=== PATIENT | male | born 1965 | race Caucasian/White ===

== ENCOUNTER 2020-06-19 23:07 | Inpatient (IN) ==
[2020-06-20] MEDS ORDERED: Heparin 5000 UNITS/ML 1 mL VIAL IV SCH (02:00)
[2020-06-20 02:09] LABS: Troponin I 0.24 ng/mL (<0.03)
[2020-06-20 02:17] LABS: Activated Partial Thrombo Time 80.7 seconds (26.0-38.0)
[2020-06-20 03:18] LABS: Ferritin 114.2 ng/mL (24-336)
[2020-06-20] MEDS ORDERED: Remdesivir 5 MG/ML LIQ IV Vial 200 MG in NS 0.9% 250 ml 210 ML IV ONE (03:30)
[2020-06-20 06:30] LABS: ABS Lymphocytes 0.8 10^3/ul (1.0-4.8); ABS Monocytes 0.4 10^3/ul (0-0.8); ABS Neutrophils 2.9 10^3/ul (1.5-7.7); Eosinophil % 0.1 %; Hematocrit 43 % (42-52); Hemoglobin 14.6 g/dL (14.0-18.0); Lymphocyte % 18.3 %; Mean Corpuscular HGB Conc 34 g/dL (31-36); Mean Corpuscular Hemoglobin 30 pg (27-31); Mean Corpuscular Volume 86 fL (80-94); Platelet Count 200 10^3/uL (150-450); Red Blood Count 4.94 10^6 /uL (4.18-5.48); Red Cell Distribution Width 13 % (10-15); White Blood Count 4.1 10^3/uL (3.5-10.8)
[2020-06-20 06:48] LABS: LDH 147 U/L (140-271)
[2020-06-20 06:49] LABS: Anion Gap 8 mmol/L (2-11); BUN/Creatinine Ratio 20.5 (8-20); Blood Urea Nitrogen 18 mg/dL (6-24); CO2 Carbon Dioxide 26 mmol/L (22-32); Calcium 8.8 mg/dL (8.6-10.3); Chloride 101 mmol/L (101-111); Cholesterol 185 mg/dL; EGFR African American 109.2 (>60); EGFR Non-African American 90.2 (>60); Glucose 106 mg/dL (70-100); HDL Cholesterol 42.5 mg/dL; LDL Cholesterol 131 mg/dL; Magnesium 1.9 mg/dL (1.9-2.7); Potassium 3.7 mmol/L (3.5-5.0); Sodium 135 mmol/L (135-145); Triglycerides 57 mg/dL
[2020-06-20] MEDS: Remdesivir 5 MG/ML LIQ IV Vial 100 MG in NS 0.9% 250 ml 230 ML IV SCH ×2 (06:50→07:55)
[2020-06-20 07:00] LABS: Troponin I 0.26 ng/mL (<0.03)
[2020-06-20] MEDS ORDERED: nitroGLYCERIN DRIP 25,000 MCG/250 ML BTL IV ONE (09:53)
[2020-06-20 12:44] LABS: Troponin I 0.27 ng/mL (<0.03)
[2020-06-20] MEDS: Heparin DRIP 25,000 UNITS BAG 25,000 UNITS/500 ML BAG IV SCH (14:09)
[2020-06-20 19:07] LABS: Troponin I 0.27 ng/mL (<0.03)
[2020-06-20 23:27] LABS: Troponin I 0.27 ng/mL (<0.03)
[2020-06-21 04:40] LABS: ABS Monocytes 0.5 10^3/ul (0-0.8); ABS Neutrophils 4.4 10^3/ul (1.5-7.7); Eosinophil % 0.2 %; Hematocrit 41 % (42-52); Hemoglobin 13.8 g/dL (14.0-18.0); Lymphocyte % 16.3 %; Mean Corpuscular HGB Conc 34 g/dL (31-36); Mean Corpuscular Hemoglobin 30 pg (27-31); Mean Corpuscular Volume 88 fL (80-94); Mean Platelet Volume 8.9 fL (7.4-10.4); Nucleated Red Blood Cells % 0.1; Platelet Count 192 10^3/uL (150-450); Red Blood Count 4.66 10^6 /uL (4.18-5.48); Red Cell Distribution Width 13 % (10-15)
[2020-06-21 04:51] LABS: Anion Gap 6 mmol/L (2-11); BUN/Creatinine Ratio 23.8 (8-20); Blood Urea Nitrogen 20 mg/dL (6-24); CO2 Carbon Dioxide 23 mmol/L (22-32); Calcium 8.2 mg/dL (8.6-10.3); Chloride 102 mmol/L (101-111); EGFR African American 115.2 (>60); EGFR Non-African American 95.2 (>60); Glucose 105 mg/dL (70-100); Magnesium 1.7 mg/dL (1.9-2.7); Phosphorus 3.2 mg/dL (2.5-5.0); Potassium 3.7 mmol/L (3.5-5.0); Sodium 131 mmol/L (135-145)
[2020-06-21] MEDS ORDERED: Remdesivir 5 MG/ML LIQ IV Vial 100 MG in NS 0.9% 250 ml 230 ML IV SCH (06:00)
[2020-06-21] MEDS ORDERED: Magnesium Sulfate 2 gm BAG 2 GM/50 ML BAG IVPB ONE (06:03)
[2020-06-21 06:57] LABS: Troponin I 0.27 ng/mL (<0.03)
[2020-06-21] MEDS ORDERED: Potassium Chlor 20 meq TAB.ER PO ONE (07:22)
[2020-06-21 11:24] LABS: Troponin I 0.26 ng/mL (<0.03)
[2020-06-21 15:28] LABS: Troponin I 0.25 ng/mL (<0.03)
[2020-06-22] MEDS: Heparin DRIP 25,000 UNITS BAG 25,000 UNITS/500 ML BAG IV SCH (04:10)
[2020-06-22 08:26] LABS: Albumin 3.9 g/dL (3.2-5.2); Albumin/Globulin Ratio 1.4 (1-3); BUN/Creatinine Ratio 16.5 (8-20); Calcium 8.9 mg/dL (8.6-10.3); EGFR African American 123.7 (>60); EGFR Non-African American 102.2 (>60); Globulin 2.7 g/dL (2-4); Indirect Bilirubin 0.5 mg/dL (0.3-1.0); Magnesium 1.9 mg/dL (1.9-2.7); Total Bilirubin 0.6 mg/dL (0.2-1.0); Total Protein 6.6 g/dL (6.4-8.9)
[2020-06-22 08:55] LABS: ABS Lymphocytes 1.3 10^3/ul (1.0-4.8); ABS Monocytes 0.4 10^3/ul (0-0.8); ABS Neutrophils 2.5 10^3/ul (1.5-7.7); Eosinophil % 0.7 %; Hematocrit 45 % (42-52); Hemoglobin 15.3 g/dL (14.0-18.0); Lymphocyte % 30.8 %; Mean Corpuscular HGB Conc 34 g/dL (31-36); Mean Corpuscular Hemoglobin 30 pg (27-31); Mean Corpuscular Volume 87 fL (80-94); Mean Platelet Volume 9.4 fL (7.4-10.4); Nucleated Red Blood Cells % 0.1; Platelet Count 200 10^3/uL (150-450); Red Blood Count 5.16 10^6 /uL (4.18-5.48); Red Cell Distribution Width 13 % (10-15); White Blood Count 4.2 10^3/uL (3.5-10.8)
[2020-06-22] MEDS: Remdesivir 5 MG/ML LIQ IV Vial 100 MG in NS 0.9% 250 ml 230 ML IV SCH (09:01)
[2020-06-22] MEDS ORDERED: Heparin 5000 UNITS/ML 1 mL VIAL ONE (09:11)
[2020-06-22] MEDS: Heparin 5000 UNITS/ML 1 mL VIAL IV PRN ×2 (09:18→18:14)
[2020-06-22 15:19] LABS: Troponin I 0.25 ng/mL (<0.03)
[2020-06-22 17:43] LABS: Troponin I 0.28 ng/mL (<0.03)
[2020-06-22 18:04] LABS: C Reactive Protein 62.99 mg/L (<8.01)
[2020-06-22 19:03] LABS: Erythrocyte Sed Rate 3 mm/Hr (0-19)
[2020-06-22 20:15] LABS: Troponin I 0.25 ng/mL (<0.03)
[2020-06-23] MEDS: Heparin DRIP 25,000 UNITS BAG 25,000 UNITS/500 ML BAG IV SCH (00:11)
[2020-06-23] MEDS: Remdesivir 5 MG/ML LIQ IV Vial 100 MG in NS 0.9% 250 ml 230 ML IV SCH (07:58)
[2020-06-23 09:00] LABS: ABS Lymphocytes 1.1 10^3/ul (1.0-4.8); ABS Monocytes 0.4 10^3/ul (0-0.8); ABS Neutrophils 3.2 10^3/ul (1.5-7.7); Eosinophil % 0.9 %; Hematocrit 46 % (42-52); Hemoglobin 15.7 g/dL (14.0-18.0); Lymphocyte % 23.6 %; Mean Corpuscular HGB Conc 34 g/dL (31-36); Mean Corpuscular Hemoglobin 30 pg (27-31); Mean Corpuscular Volume 86 fL (80-94); Mean Platelet Volume 8.8 fL (7.4-10.4); Nucleated Red Blood Cells % 0.1; Platelet Count 197 10^3/uL (150-450); Red Blood Count 5.32 10^6 /uL (4.18-5.48); Red Cell Distribution Width 13 % (10-15); White Blood Count 4.9 10^3/uL (3.5-10.8)
[2020-06-23 09:16] LABS: Albumin 4.1 g/dL (3.2-5.2); Albumin/Globulin Ratio 1.6 (1-3); BUN/Creatinine Ratio 21.5 (8-20); EGFR African American 123.7 (>60); EGFR Non-African American 102.2 (>60); Globulin 2.6 g/dL (2-4); Total Bilirubin 0.7 mg/dL (0.2-1.0); Total Protein 6.7 g/dL (6.4-8.9)
[2020-06-23 09:20] LABS: INR 1.21 (0.82-1.09)
[2020-06-23 10:10] LABS: Potassium 4.2 mmol/L (3.5-5.0)
[2020-06-23 16:52] VITALS: BP 131/82
== END 2020-06-23 16:50 | disposition home or self-care (01) | DRG 137 ==
LOC: ED 23:07 → EDHOLD 06-20 16:31 → ICU 06-21 02:15 → MED 06-21 20:10
PROVIDERS: ADMIT Internal Medicine; ATTEND Internal Medicine